=== PATIENT | male | born 1980 | race Caucasian/White ===

== ENCOUNTER 2017-10-28 23:53 | Emergency (ER) | payer MEDICAID ==
[~2017-10-28 23:53] MED LIST: ADAL40PE4 SQ; BENZ200C38 PO; FOLI-68 PO; GUAI600T34 PO; HYDR-4309 PO; IBUP800T37 PO; NO REGULAR MEDS; OXYC-865 PO; RIVA15TA PO
--- NOTE | 2017-10-29 00:04 | ER Report ---
History and Physical Time Seen By MD: 00:03 Hx. of Stated Complaint: PATIENT HAS BEEN HAVING PROBLEM WITH HIS LEFT SHOULDER, HE DISLOCATED IT LAST ABOUT 3WEEKS AOG AGAIN AND NOW HE IS HAVING NUMBNESS FORM MIDFOREARM TO HAND ON THE LEFT SIDE, HAS SWELLING TO ARM AND INCREASED PAIN. HPI/ROS CHIEF COMPLAINT: numbness in left arm HISTORY OF PRESENT ILLNESS: This is a 37 year old male. He has a history of past injury to shoulder and clavicle. Has had surgery. Recently dislocated shoulder, about 3 weeks ago. Since then increased pain. Recently noting some numbness in the left arm. Starts just below the elbow. Ulnar side only. Goes into the left 5th, 4th and partial 3rd finger. Normal motor function, no weakness noted. Has some chronic pain and tightness in shoulder and neck region. No shortness of breath. Perhaps a little swelling in the elbow area, but no pain there and no elbow injuries noted. Allergies: Coded Allergies: No Known Drug Allergies (Verified , 03/24/16) Home Meds Active Scripts Methylprednisolone (METHYLPREDNISOLONE) 4 Mg Tab.ds.pk, 4 MG PO DIRECTED, #1 PACK 0 Refills Prov:LEIA MENDEZ MD 10/29/17 Reported Medications Folic Acid (FOLIC ACID) 1 Mg Tablet, 1 MG PO QDAY, TAB 05/07/16 Adalimumab (HUMIRA) 40 Mg/0.8 Ml [email or web address], 40 MG SQ 03/24/16 Reviewed Nurses Notes: Yes Hx Smoking: Yes Smoking Status: Current: Every Day Smoker Constitutional Vital Sign - Last 24 Hours 10/28/17 10/29/17 10/29/17 10/29/17 23:57 00:00 00:08 00:23 Temp 97.9 Pulse 72 70 68 Resp 16 B/P (MAP) 151/103 158/108 (125) Pulse Ox 95 94 93 O2 Delivery Room Air 10/29/17 10/29/17 00:30 00:38 Pulse 68 B/P (MAP) 143/101 (115) Pulse Ox 93 Physical Exam General Appearance: Alert, no acute distress. Eyes: Pupils equal and round no injection. ENT: Moist mucous membranes. Neck: Neck is supple and non tender in midline, but paraspinous muscles tender and tender trapezius area.. Respiratory: Breathing easily. Cardiac: regular rate and rhythm. Normal cap refill and pulses. Musculoskeletal: Extremities have full range of motion. Non tender. No weakness. Pain with palpation over the clavicle. Diffuse pain over the shoulder and proximal humerus area. Neuro: Numb in ulnar distribution from a few inches below the elbow. Numb as noted above. Normal sensation in radial side. No pain with tapping over the ulnar nerve at the elbow. Skin: No rashes or lesions. DIFFERENTIAL DIAGNOSIS: After history and physical exam differential diagnosis was considered for ulnar nerve neuropathy, suspect based on his symptoms that this is coming from shoulder region. Medical Decision Making EKG/Imaging Imaging Deferred. ED Course/Re-evaluation ED Course Recommended follow-up with orthopedic surgery for further evaluation of ulnar nerve neuropathy. Will start Medrol Dosepack in the meantime. Decision to Disposition Date: Oct 29, 2017 Decision to Disposition Time: 00:22 Depart Departure Latest Vital Signs Vital Signs Date Time Temp Pulse Resp B/P (MAP) Pulse Ox O2 Delivery O2 Flow Rate FiO2 10/29/17 00:38 68 93 10/29/17 00:30 143/101 (115) 10/28/17 23:57 97.9 16 Room Air Impression: Primary Impression: Ulnar nerve neuropathy Condition: Improved Disposition: HOME OR SELF-CARE Referrals: LUIS FORREST PA-C (PCP) New Scripts Methylprednisolone (METHYLPREDNISOLONE) 4 Mg Tab.ds.pk 4 MG PO DIRECTED, #1 PACK 0 Refills Prov: LEIA MENDEZ MD 10/29/17 Patient Instructions: Peripheral Neuropathy (ED) Additional Instructions: You have dysfunction of the ulnar nerve, likely coming from the pain and tightness in the shoulder area. Please call and make a follow-up appointment with Dr. Cabral or Dr. Parish at [facility]. Call on Tuesday for an appointment. Medrol dosepack for the next week. Problem Qualifiers Primary Impression: Ulnar nerve neuropathy Laterality: left Qualified Codes: G56.22 - Lesion of ulnar nerve, left upper limb LEIA MENDEZ MD Oct 29, 2017 00:04
[2017-10-29] MEDS ORDERED: methylPREDNIS 4 MG TAB PO SCH (00:25)
[2017-10-29] MEDS ORDERED: METH4TAB66 PO (00:26)
[2017-10-29 00:30] VITALS: BP 143/101
== END 2017-10-29 00:48 | disposition home or self-care (01) ==
LOC: ER 23:56
DX: G56.22 Lesion of ulnar nerve, left upper limb (principal); F17.200 Nicotine dependence, unspecified, uncomplicated
CPT/HCPCS: 99283; J7509